=== PATIENT | male | born 1960 | race Caucasian/White ===

== ENCOUNTER 2017-04-25 06:19 | Emergency (ER) | payer OTHER ==
[~2017-04-25] VITALS: Ht 167.6 cm; Wt 68.0 kg
[2017-04-25 06:39] VITALS: BP 158/84
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
== END 2017-04-25 06:52 | disposition left against medical advice (07) ==
LOC: ER 06:28
DX: Z53.21 Procedure and treatment not carried out due to patient leaving prior to being seen by health care provider (principal)
CPT/HCPCS: A4606; Z7610